=== PATIENT | male | born 1955 | race Caucasian/White ===

== ENCOUNTER 2020-05-24 13:22 | Emergency (ER) | payer OTHER, SELFPAY ==
[2020-05-24 13:26] VITALS: BP 118/92; PULSE 95; RESP 18; TEMP 36.6; O2SAT 97; BMI 25.4
[2020-05-24 14:00] VITALS: RESP 18
--- NOTE | 2020-05-24 14:38 | CT_ITS ---
EXAMINATION: CT HEAD WITHOUT CONTRAST CLINICAL INFORMATION: Right arm and leg weakness/numbness COMPARISON: MRI brain 12/05/2019 TECHNIQUE: Contiguous axial imaging was performed from the skull base to vertex without intravenous administration of contrast. This CT examination was performed using dose optimization techniques as appropriate, variously including the following: *Automated exposure control *Adjustment of mA and/or kV according to patient size (this includes techniques or standardized protocols for targeted exams where dose is matched to indication/reason for exam; i.e. extremities or head) *Use of iterative reconstruction technique DLP: 1951 mGy-cm FINDINGS: There is no acute intra-axial, extra-axial bleed, masses or midline shift. There is no acute infarction in evolution. There is encephalomalacia right frontal lobe from an old insult unchanged to previous MRI brain 06/17/2019. There is no acute infarction in evolution. There is dystrophic calcification seen in bilateral basal ganglia. There is mild bilateral periventricular hypodensity in both cerebral hemispheres there is lacunar infarction right basal ganglia. Both lateral ventricles are enlarged and so other cortical sulci. Bone windows reveal mild bilateral right frontal region. In addition there is craniotomy changes in the right frontal lobe. Rest of the calvarium is unremarkable. Bilateral paranasal sinuses and mastoid air cells are well-aerated. There is complete opacification of left maxillary sinus. Rest of the paranasal sinuses are clear. CT/CT head/brain wo con IMPRESSION: No acute intracranial process seen. Right frontal lobe encephalomalacia with a adam hole and craniotomy change along the right calvarium. There is complete opacification of left maxillary sinus from chronic sinusitis.
--- NOTE | 2020-05-24 14:38 | XR_ITS ---
EXAMINATION: XR CHEST CLINICAL INFORMATION: Weakness COMPARISON: April 25, 2017 TECHNIQUE: 2 views of the chest were obtained. FINDINGS: There are a few foci of indistinct density about the lateral aspect of the left hemidiaphragm in location where there had been previous disease on study of April 25, 2017 and this may represent scarring. No definite confluent pneumonitis is appreciated. Heart normal size. No evidence of pulmonary edema. No pneumothorax or pleural effusion. XR/XR chest 2V IMPRESSION: Probable left lung scarring with no definite confluent pneumonitis appreciated.
--- NOTE | 2020-05-24 14:38 | ECG_ITS ---
Test Reason : NUMBNESS Blood Pressure : / mmHG Vent. Rate : 054 BPM Atrial Rate : 054 BPM P-R Int : 150 ms QRS Dur : 102 ms QT Int : 466 ms P-R-T Axes : 000 002 120 degrees QTc Int : 441 ms Sinus bradycardia with Premature atrial complexes T wave abnormality, consider lateral ischemia Abnormal ECG When compared with ECG of 25-APR-2017 11:12, No significant change was found Referred By: Estella Zhang Electronically Signed By:CHEYENNE SAMUEL MD
--- NOTE | 2020-05-24 15:08 | ED_ITS ---
HPI - Neuro Symptoms/Deficit General Chief Complaint: Neuro Symptoms/Deficit Stated Complaint: rt sided numbness Time Seen by Provider: 05/24/20 14:24 Source: patient and family Mode of arrival: ambulatory Limitations: no limitations History of Present Illness HPI Narrative: 65-year-old male with past medical history of hearing and visual impairment, CVA with no residual weakness on Plavix here with complaints of right arm and leg numbness and weakness since yesterday at 09:00. The patient was seen at an outpatient urgent care and was referred to the emergency department for further evaluation. Patient denies headache, dizziness, nausea, vomiting, unsteady gait. Vision at baseline Onset (ago): day(s) (<24 hr) Time: 09:00 Timing confirmed by: spouse Location: right arm and right leg History of same: Yes (CVA 2017-presented with bilateral lower leg weakness) Severity: mild Quality: weak and numb Relieving factors: none Exacerbating factors: none On Anticoagulants: Yes (plavix and aspirin ) Associated symptoms: denies other symptoms Treatments Prior to Arrival: Aspirin (81) Related Data Home Medications Medication Instructions Recorded Confirmed aspirin 81 mg tablet,delayed 81 mg PO DAILY 05/24/20 release cholecalciferol (vitamin D3) 125 125 mcg PO DAILY 05/24/20 mcg (5,000 unit) capsule clopidogrel 75 mg tablet 75 mg PO DAILY 05/24/20 Previous Rx's Medication Instructions Recorded atorvastatin 80 mg tablet 80 mg PO DAILY #90 tab 03/07/20 folic acid 1 mg tablet 1 mg PO DAILY #90 tab 03/11/20 Allergies Allergy/AdvReac Type Severity Reaction Status Date / Time No Known Allergies Allergy Unverified 04/19/20 13:49 [No Known Allergies*] Review of Systems Review of Systems: Yes all other systems are reviewed and are negative Constitutional: Constitutional: Reports no additional constitutional complaints, Denies body ache(s), Denies chills, Denies fever(s), Denies head ache(s) and Reports weakness Eyes: Eyes: Reports no additional eye complaints and Denies change in vision ENT: Reports system reviewed and no additional complaints, except as documented, Denies dizziness, Denies headache(s), Denies nasal congestion, Denies nasal discharge and Denies neck pain Cardiovascular: Cardiovascular: Reports no additional cardiovascular complaints, Denies chest pain, Denies leg edema and Denies dyspnea Respiratory: Respiratory: Reports no additional respiratory complaints, Denies cough and Denies dyspnea Gastrointestinal: Gastrointestinal: Reports no additional gastrointestinal complaints, Denies abdominal pain, Denies diarrhea, Denies nausea and Denies vomiting Genitourinary: Genitourinary: Denies urinary incontinence Musculoskeletal: Musculoskeletal: Reports no additional musculoskeletal complaints, Denies back pain, Denies arthralgias, Denies joint swelling, Denies neck pain, Reports numbness and Denies tingling Integumentary/Breasts: Skin/Breast: Reports system reviewed and no additional complaints, except as docu and Denies rash Neurologic: Reports system reviewed and no additional complaints, except as documented, Reports Abnormal speech present, Denies dizziness, Denies he adache(s), Reports numbness, Denies tingling and Reports weakness PMFSH Past Medical History Attestation statement: The following information was validated with the patient. Source: old records reviewed and nursing notes reviewed Social History Social History Alcohol intake: unknown Smoking Status: Unknown if ever smoked Use of substances other than those prescribed or required for medical reasons: Unknown Advance Directives: No Advance Directives Information Provided: Yes Physical Exam 2 Vital Signs: Vital Signs: Last Vital Signs Temp 97.9 F 05/24/20 13:26 Pulse 95 05/24/20 13:26 Resp 18 05/24/20 16:00 BP 118/92 H 05/24/20 13:26 Pulse Ox 97 05/24/20 13:26 Body Mass Index 25.4 Const: General: cooperative, healthy appearing, comfortable and no acute distress Orientation/consciousness: patient oriented x3 Limitations: no limitations HENMT: Head: Yes normal to inspection Ears: hearing grossly normal bilaterally General nose exam: Normal external nose present Face and sinus: Yes normal facial exam Mouth: Normal oral and palatal mucosa present Throat: Yes posterior oropharynx normal Eyes: General: appearance normal, both eyes and all related structures Pupils: Equal, round and reactive pupils present Neck: Neck: Yes normal visual inspection Chest: Chest palpation & inspection: normal inspection of the chest Resp: Effort & Inspection: normal respiratory effort Auscultation: clear to auscultation bilaterally Cardio: Rate: regular rate Rhythm: regular rhythm Peripheral pulses: Peripheral pulses 2+ throughout GI: Inspection: Yes normal to inspection Palpation (GI): Soft to palpation and nontender Auscultation: normal bowel sounds Back/Spine/Pelvis: Thoracic/Lumbar Spine: thoracic and lumbar spine normal to inspection Skin: General skin exam: no rashes or lesions noted Neuro: General: patient oriented x3 Cranial nerves: Yes Equal, round and reactive pupils present, Yes Bilaterally intact EOM present, Yes Nystagmus not present, Yes Normal facial strength present, Yes Midline tongue present and Yes Normal gag reflex present Cognition (Neuro): normal cognition Speech: A bnormal speech present Gait exam (Neuro): Normal gait present Coordination: [id number] test normal, [id number] test normal and tandem gait normal Extrem: General: Yes normal to inspection Course Course Course Narrative: 65-year-old male here with right arm and leg weakness and numbness since 09:00 o'clock yesterday morning. On exam there is no appreciated leg or arm weakness. There is some reports of sensory loss on the right side. NIH score of 1. Outside of TPA window. Will check CT head, labs, UA, EKG, CXR. 1600-Pt very resistant to exam. Refusing all labs, imaging, EKG. Got Emily on the phone and patient now agreeable. 1649-CT head unremarkable. X-ray unremarkable. EKG unremarkable. Labs all negative. Continued symptoms of numbness in the right arm and leg. MRA from November 2019 shows multi vessel disease. Last seen by Dr Lo 12/05/19 which showed critical stenosis/short segment occlusion of the left subclavian artery without change from prior. 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 Call to Neurology to discuss. 1729-Spoke to Dr Lo. Reviewed MRA. Recommended obtaining CTA head/neck. If no surgical intervention warranted then f/u outpatient with neurology. Family updated. Sign out to Ghislaine ERICKSON pending above. MDM - Neuro Symptoms/Deficit MDM Narrative Medical decision making narrative: Electrolyte abnormality, CVA vs TIA vs ICH Medical Records Attestation: I reviewed the patient's medical records. Lab Data Attestation: I reviewed the patient's lab results. Result diagrams: 05/24/20 15:57 05/24/20 15:57 Labs: Lab Results 05/24/20 05/24/20 05/24/20 Range/Units 15:57 15:57 15:57 WBC 7.3 (4.8-10.8) X10*3/uL RBC 4.08 L (4.60-5.80) X10*6/uL Hgb 13.5 L (14.0-18.0) g/dl Hct 40.4 L (42-52) % MCV 99.0 H (80-98) fL MCH 33.1 H (27.0-33.0) pg MCHC 33.4 (31.0-36.0) g/dl RDW 13.9 (11.0-16.0) % Plt Count 197 (160-400) X10*3/uL MPV 9.8 (9.4-12.4) fL Immature Gran % (Auto) 0.3 (0.0-0.4) % Neut % (Auto) 67.7 (45-73) % Lymph % (Auto) 22.9 (20-40) % [place] % (Auto) 6.9 (2-11) % Eos % (Auto) 1.4 (0-4) % Baso % (Auto) 0.8 (0-2) % Lymph # (Auto) 1.7 (1.2-4.9) X10*3/uL [place] # (Auto) 0.5 (0.1-1.2) X10*3/uL Eos # (Auto) 0.1 (0.0-0.4) X10*3/uL Baso # (Auto) 0.1 (0.0-0.2) X10*3/uL Abs Immat Gran (auto) 0.02 (0.00-0.03) X10*3/uL Absolute Neuts (auto) 4.9 (2.0-8.3) X10*3/uL Absolute Nucleated RBC 0.000 (0.0-0.012) X10*3/uL Nucleated RBC % (auto) 0.0 (0.0-0.2) /100WBC PT 13.6 H (10.8-13.0) SEC INR 1.1 (0.9-1.1) Sodium 142 (135-145) mmol/L Potassium 4.1 (3.3-5.1) mmol/l Chloride 108 (96-108) mmol/L Carbon Dioxide 26 (22-29) mmol/L Anion Gap 12 (12-20) BUN 17 H (9-16) mg/dL Creatinine 1.00 (0.5-1.4) mg/dL Estim Creat Clear Calc 63.3 Estimated GFR > 60 Random Glucose 92 (60-115) mg/dL Calcium 8.2 L (8.4-10.2) mg/dL Magnesium 2.2 (1.6-2.6) mg/dL Total Bilirubin 0.8 (0.0-1.0) mg/dL Direct Bilirubin 0.4 (0.0-0.5) mg/dL AST 16 (5-37) U/L ALT 13 (0-40) U/L Alkaline Phosphatase 59 (39-117) U/L Troponin I High Sens (<3.5-35.0) ng/L Total Protein 6.3 L (6.5-8.0) g/dL Albumin 4.2 (3.5-5.0) g/dL Urine Color Urine Appearance Urine pH (5.0-8.0) Ur Specific [place] (1.005-1.025) Urine Protein (NEG-TRACE) MG/DL Urine Glucose (UA) (NEG) MG/DL Urine Ketones (NEG) MG/DL Urine Blood (NEG) Urine Nitrite (NEG) Ur Leukocyte Esterase (NEG) 05/24/20 05/24/20 Range/Units 15:57 16:05 WBC (4.8-10.8) X10*3/uL RBC (4.60-5.80) X10*6/uL Hgb (14.0-18.0) g/dl Hct (42-52) % MCV (80-98) fL MCH (27.0-33.0) pg MCHC (31.0-36.0) g/dl RDW (11.0-16.0) % Plt Count (160-400) X10*3/uL MPV (9.4-12.4) fL Immature Gran % (Auto) (0.0-0.4) % Neut % (Auto) (45-73) % Lymph % (Auto) (20-40) % [place] % (Auto) (2-11) % Eos % (Auto) (0-4) % Baso % (Auto) (0-2) % Lymph # (Auto) (1.2-4.9) X10*3/uL [place] # (Auto) (0.1-1.2) X10*3/uL Eos # (Auto) (0.0-0.4) X10*3/uL Baso # (Auto) (0.0-0.2) X10*3/uL Abs Immat Gran (auto) (0.00-0.03) X10*3/uL Absolute Neuts (auto) (2.0-8.3) X10*3/uL Absolute Nucleated RBC (0.0-0.012) X10*3/uL Nucleated RBC % (auto) (0.0-0.2) /100WBC PT (10.8-13.0) SEC INR (0.9-1.1) Sodium (135-145) mmol/L Potassium (3.3-5.1) mmol/l Chloride (96-108) mmol/L Carbon Dioxide (22-29) mmol/L Anion Gap (12-20) BUN (9-16) mg/dL Creatinine (0.5-1.4) mg/dL Estim Creat Clear Calc Estimated GFR Random Glucose (60-115) mg/dL Calcium (8.4-10.2) mg/dL Magnesium (1.6-2.6) mg/dL Total Bilirubin (0.0-1.0) mg/dL Direct Bilirubin (0.0-0.5) mg/dL AST (5-37) U/L ALT (0-40) U/L Alkaline Phosphatase (39-117) U/L Troponin I High Sens 15.5 (<3.5-35.0) ng/L Total Protein (6.5-8.0) g/dL Albumin (3.5-5.0) g/dL Urine Color YELLOW Urine Appearance CLEAR Urine pH 6.0 (5.0-8.0) Ur Specific [place] >= 1.030 H (1.005-1.025) Urine Protein NEG (NEG-TRACE) MG/DL Urine Glucose (UA) NEG (NEG) MG/DL Urine Ketones NEG (NEG) MG/DL Urine Blood NEG (NEG) Urine Nitrite NEG (NEG) Ur Leukocyte Esterase NEG (NEG) Imaging Data CT scan - head: Attestation: I personally reviewed and interpreted this imaging study as follows: Radiologist's impression: EXAMINATION: CT HEAD WITHOUT CONTRAST CLINICAL INFORMATION: Right arm and leg weakness/numbness COMPARISON: MRI brain 12/05/2019 TECHNIQUE: Contiguous axial imaging was performed from the skull base to vertex without intravenous administration of contrast. This CT examination was performed using dose optimization techniques as appropriate, variously including the following: *Automated exposure control *Adjustment of mA and/or kV according to patient size (this includes techniques or standardized protocols for targeted exams where dose is matched to indication/reason for exam; i.e. extremities or head) *Use of iterative reconstruction technique DLP: 1951 mGy-cm FINDINGS: There is no acute intra-axial, extra-axial bleed, masses or midline shift. There is no acute infarction in evolution. There is encephalomalacia right frontal lobe from an old insult unchanged to previous MRI brain 06/17/2019. There is no acute infarction in evolution. There is dystrophic calcification seen in bilateral basal ganglia. There is mild bilateral periventricular hypodensity in both cerebral hemispheres there is lacunar infarction right basal ganglia. Both lateral ventricles are enlarged and so other cortical sulci. Bone windows reveal mild bilateral right frontal region. In addition there is craniotomy changes in the right frontal lobe. Rest of the calvarium is unremarkable. Bilateral paranasal sinuses and mastoid air cells are well-aerated. There is complete opacification of left maxillary sinus. Rest of the paranasal sinuses are clear. CT/CT head/brain wo con IMPRESSION: No acute intracranial process seen. Right frontal lobe encephalomalacia with a adam hole and craniotomy change along the right calvarium. There is complete opacification of left maxillary sinus from chronic sinusitis. Chest x-ray: Attestation: I personally reviewed and interpreted this imaging study as follows: Radiologist's impression: EXAMINATION: XR CHEST CLINICAL INFORMATION: Weakness COMPARISON: April 25, 2017 TECHNIQUE: 2 views of the chest were obtained. FINDINGS: There are a few foci of indistinct density about the lateral aspect of the left hemidiaphragm in location where there had been previous disease on study of April 25, 2017 and this may represent scarring. No definite confluent pneumonitis is appreciated. Heart normal size. No evidence of pulmonary edema. No pneumothorax or pleural effusion. XR/XR chest 2V IMPRESSION: Probable left lung scarring with no definite confluent pneumonitis appreciated. ECG Data Attestation: I personally reviewed and interpreted this ECG as follows: ECG interpretation date: 05/24/20 ECG interpretation time: 15:47 Interpretation: Bradycardia with occasional PACs, normal [place], normal QRS. Rate is 54, T-wave inversions in leads V4, V5 and V6 which appear unchanged with previous EKG 2017 NIH Stroke Scale Internal: Initial- Upon Arrival Level of Consciousness: Alert Level of Consciousness Questions: Answers both questions correctly Level of Consciousness Commands: Performs both tasks correctly Best Gaze: Normal Visual: No visual loss (no changes from baseline-legally blind ) Facial Palsy: Normal Motor Arm (Right): No drift Motor Arm (Left): No drift Motor Leg (Right): No drift Motor Leg (Left): No drift Limb Ataxia: Absent Sensory: Mild to moderate sensory loss Best Language: No aphasia Dysarthia: Normal Extinction and Inattention: No abnormality Score: 1 Discharge Plan Discharge Prescriptions: No Action atorvastatin 80 mg tablet 80 mg PO DAILY Qty: 90 RF: 1 folic acid 1 mg tablet 1 mg PO DAILY Qty: 90 RF: 0 clopidogrel 75 mg tablet 75 mg PO DAILY RF: 0 aspirin [Adult Aspirin Regimen] 81 mg tablet,delayed release (DR/EC) 81 mg PO DAILY RF: 0 cholecalciferol (vitamin D3) 125 mcg (5,000 unit) capsule 125 mcg PO DAILY RF: 0
[2020-05-24 16:00] VITALS: RESP 18
[2020-05-24 16:12] LABS: MANUAL DIFF FLAG NO
[2020-05-24 16:15] LABS: Glucose Urine UA NEG (NEG); Leukocyte Esterase Urine NEG (NEG); Nitrite Urine NEG (NEG); Specific Gravity - Urine >= 1.030 (1.005-1.025); Urine Blood NEG (NEG); Urine Ketones NEG (NEG); Urine Protein NEG (NEG-TRACE)
[2020-05-24 16:15] LABS: Basophils Absolute Auto 0.1 X10*3/uL (0.0-0.2); Basophils Percent Auto 0.8 % (0-2); Eosinophils Absolute Auto 0.1 X10*3/uL (0.0-0.4); Eosinophils Percent Auto 1.4 % (0-4); Hematocrit 40.4 % (42-52); Hemoglobin 13.5 g/dl (14.0-18.0); Imm Gran Abs Auto 0.02 X10*3/uL (0.00-0.03); Imm Gran Pct Auto 0.3 % (0.0-0.4); Lymphocytes Absolute Auto 1.7 X10*3/uL (1.2-4.9); Lymphocytes Percent Auto 22.9 % (20-40); Mean Corpuscular HGB Conc 33.4 g/dl (31.0-36.0); Mean Corpuscular Hemoglobin 33.1 pg (27.0-33.0); Mean Platelet Volume 9.8 fL (9.4-12.4); Monocytes Absolute Auto 0.5 X10*3/uL (0.1-1.2); Monocytes Percent Auto 6.9 % (2-11); Neutrophils Absolute Auto 4.9 X10*3/uL (2.0-8.3); Neutrophils Percent Auto 67.7 % (45-73); Platelet Count 197 X10*3/uL (160-400); Red Blood Count 4.08 X10*6/uL (4.60-5.80); Red Cell Distribution Width 13.9 % (11.0-16.0); White Blood Count 7.3 X10*3/uL (4.8-10.8)
[2020-05-24 16:19] LABS: Appearance Urine CLEAR; Color Urine YELLOW
[2020-05-24 16:26] LABS: INTERNATIONAL NORM RATIO 1.1 (0.9-1.1); Prothrombin Time 13.6 SEC (10.8-13.0)
[2020-05-24 16:39] LABS: Alanine Aminotransferase 13 U/L (0-40); Albumin Level 4.2 g/dL (3.5-5.0); Alkaline Phosphatase 59 U/L (39-117); Anion Gap 12 (12-20); Aspartate Amino Transferase 16 U/L (5-37); Bilirubin Direct 0.4 mg/dL (0.0-0.5); Bilirubin Total 0.8 mg/dL (0.0-1.0); Blood Urea Nitrogen 17 mg/dL (9-16); Calcium 8.2 mg/dL (8.4-10.2); Carbon Dioxide 26 mmol/L (22-29); Chloride 108 mmol/L (96-108); Creatinine Clr Calc Pharmacy 63.3; Estimated Glomerular Filt Rate > 60; Glucose Random 92 mg/dL (60-115); Magnesium 2.2 mg/dL (1.6-2.6); Potassium 4.1 mmol/l (3.3-5.1); Sodium 142 mmol/L (135-145); Total Protein 6.3 g/dL (6.5-8.0)
[2020-05-24 16:43] LABS: Troponin-I High Sensitivity 15.5 ng/L (<3.5-35.0)
--- NOTE | 2020-05-24 17:24 | CT_ITS ---
EXAMINATION: CT ANGIOGRAM OF THE HEAD CT ANGIOGRAM OF THE NECK CLINICAL INFORMATION: Right arm numbness and right leg weakness. COMPARISON: Concurrent CT scan of the head earlier 05/24/2020. MRA of the head and neck 12/05/2019 and MRI scan of the brain 06/17/2019 TECHNIQUE: Test bolus series followed by intravenous administration 70 mL of Omnipaque 350. Helical imaging was performed in the axial plane from the mediastinum to the skull vertex. The degree of stenosis is based off NASCET criteria. The data was processed at the automation technologist workstation for generation of MIP images. Three-dimensional volume rendered reformatted images were also generated at an offline 3-D workstation. This CT examination was performed using dose optimization techniques as appropriate, variously including the following: *Automated exposure control *Adjustment of mA and/or kV according to patient size (this includes techniques or standardized protocols for targeted exams where dose is matched to indication/reason for exam; i.e. extremities or head) *Use of iterative reconstruction technique DLP: 1514. mGy-cm. FINDINGS: CT Head: The study redemonstrates the sequelae from the right temporoparietal craniotomy with underlying gliosis and encephalomalacia. There is a lacunar infarct in the right basal ganglia. There is overall prominence of the ventricles and sulci consistent with diffuse volume loss. There is slight ex-vacuo dilatation of the body of the right lateral ventricle. The study redemonstrates coarse mineralization changes in the bilateral basal ganglia. There are no extra-axial fluid collections. There is no abnormal enhancement. There is no evidence of acute hemorrhage. There are multiple scattered areas of low attenuation in the periventricular and subcortical white matter consistent with chronic microvascular ischemic disease. Multiple lacunar infarcts are redemonstrated in the tristan and in the cerebellar hemispheres. There are atheromatous calcifications of the cavernous internal carotid arteries bilaterally. The mastoid air cells are well-aerated. There is complete opacification of the left maxillary sinus. CTA Neck: There is a common origin of the left common carotid and brachiocephalic arteries which is a normal variant. There are atheromatous calcifications of the aortic arch. There is marked narrowing of the proximal left subclavian artery just distal to its origin; the vessel opacifies distal to this. There are atheromatous calcifications at the origin of the right common carotid artery. Both common carotid arteries are patent. There are atheromatous calcifications bilaterally, without significant stenosis. The cervical internal carotid arteries appear normal bilaterally. The origins of both vertebral arteries are well-demonstrated. Both vertebral arteries are patent throughout their cervical course extending intradurally, and are codominant. Nonvascular: The visualized lung malone are well-aerated. There are small lymph nodes at multiple levels in the neck bilaterally which appear morphologically normal. The thyroid gland appears normal. There are mild spondylitic changes in the cervical spine. The patient is edentulous in the maxilla. There is a residual partially ruptured right mandibular molar tooth. CTA Head: There are atheromatous calcifications of the cavernous internal carotid arteries bilaterally. The vessels demonstrate flow. There are calcifications of the right supraclinoid internal carotid artery. The carotid termini appear normal. There is slight irregularity of the distal M1/proximal M2 segments of the right middle cerebral artery. The left middle cerebral artery appears to have uniform caliber. There is decreased arborization of the posterior right middle cerebral artery territory. The A1 segment of the left anterior cerebral artery is markedly thinner compared to the right. The anterior communicating artery appears normal. There is cutoff of the proximal A2 segment of the right anterior cerebral artery. The A2 segment of the left anterior cerebral artery is patent. The intradural vertebral arteries are codominant. There are moderate atheromatous calcifications of the proximal intradural left vertebral artery, and distal to this the vessel has slightly irregular caliber. The right vertebral artery has uniform caliber. More distally, both vertebral arteries are patent. The basilar artery is patent. The right posterior cerebral artery has thinner caliber compared to the left, and there are irregularities in the proximal P2 segment of the left posterior cerebral artery. There is also irregularity of the proximal left superior cerebellar artery. The venous sinuses opacify normally. CT/CT angio head neck IMPRESSION: CT head and neck: 1. The study redemonstrates extensive gliosis and encephalomalacia in the distribution of the right middle cerebral artery. 2. There are no acute bleeds or territorial infarcts. No masses are demonstrated and there is no abnormal enhancement. 3. There is diffuse volume loss and there are chronic microvascular ischemic changes and lacunar infarcts. CTA head and neck: 1. The study redemonstrates marked narrowing just proximal to the origin of the left subclavian artery, demonstrated on prior imaging. 2. The carotid arteries and vertebral arteries in the neck show no evidence of significant stenosis or occlusion. 3. Intracranially, the A2 segment of the right anterior cerebral artery is cutoff, similar compared to prior imaging. 4. The right posterior cerebral artery has thinner caliber compared to the left, also demonstrated on prior imaging. The study also redemonstrates irregularity of the P2 segment of the left posterior cerebral artery. 5. No aneurysms are demonstrated.
[2020-05-24 17:40] VITALS: BP 125/82; PULSE 54; RESP 16; TEMP 37.2; O2SAT 97
[2020-05-24 18:00] VITALS: RESP 18
[2020-05-24] MEDS: iohexoL 350 MG/ML 100 ML INFUS..BTL IV (18:47)
--- NOTE | 2020-05-24 19:31 | PC.NURSE ---
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 I explained that patient had a cat scan and we are awaiting the results of scan and blood work. This proposal lead writer will call patient's and let her know as soon as patient is ready for discharge.
[2020-05-24 20:41] VITALS: BP 130/81; PULSE 66; RESP 18; TEMP 36.8; O2SAT 97
== END 2020-05-24 21:36 | disposition home or self-care (01) ==
PROVIDERS: Nurse Practitioner Family; Emergency Provider Emergency Medicine Emergency Medical Services; PCP Internal Medicine
DX: R20.0 Anesthesia of skin (principal); R53.1 Weakness; R29.701 NIHSS score 1; Z86.73 Personal history of transient ischemic attack (TIA), and cerebral infarction without residual deficits; Z79.899 Other long term (current) drug therapy; Z79.82 Long term (current) use of aspirin
CPT/HCPCS: 36415; 70450; 70496; 70498; 71046; 80048; 80076; 81003; 83735; 84484; 85025; 85610; 93005; 99284; Q9967

== ENCOUNTER 2020-06-08 13:35 | Outpatient (REF) | payer OTHER, SELFPAY ==
--- NOTE | 2020-06-08 13:48 | MR_ITS ---
EXAMINATION: MRI OF THE BRAIN WITHOUT CONTRAST CLINICAL INFORMATION: Stroke. COMPARISON: CT scan and CTA of the head 05/24/2020. MRI scan of the brain 06/17/2019. TECHNIQUE: MRI of the brain was obtained using routine sequences without contrast. FINDINGS: No diffusion abnormalities are identified to suggest an acute or subacute infarct. There is a large area of gliosis and encephalomalacia in the right parieto-occipital temporal regions. The ventricles and sulci commensurately prominent consistent with moderate diffuse volume loss. There are extensive areas of increased T2 and FLAIR signal in the periventricular and subcortical white matter bilaterally and in the tristan. Chronic encephalomalacic changes likely from infarct are demonstrated in the posterior right superior frontal gyrus, in the bilateral temporal lobes and in the right basal ganglia. There is a chronic infarct in the central tristan just to the left of midline. There are sequelae of a craniotomy in the right frontal region. All these findings appear stable compared to prior imaging. No extra-axial fluid collections are seen. No mass effect or midline shift is seen. The cerebellum appears normal. There is susceptibility artifact from around the craniotomy in the right frontal bone. There is relatively extensive mineralization of the bilateral basal ganglia. A focus of low gradient signal is also demonstrated anterior to the trigone of the right lateral ventricle. These are unchanged. There is no evidence of acute hemorrhage. The craniovertebral junction, marrow signal, and midline structures are normal. The major intracranial flow-voids at the level of the pauma of [place] are preserved. The dural venous sinus flow-voids are maintained. The mastoid air cells are well-aerated. There is extensive opacification of the left maxillary sinus, which was demonstrated on prior imaging. MR/MR head/brain wo con IMPRESSION: 1. There are no acute bleeds or territorial infarcts. No masses are demonstrated. 2. There is extensive gliosis and encephalomalacia in the right temporoparietal occipital regions, consistent with sequelae of a right middle cerebral artery territory chronic infarct. In addition, there are sequelae of chronic infarcts in the right frontal lobe, in the right basal ganglia and in the tristan. Gliotic changes are noted in the anterior temporal lobes bilaterally. These findings appear stable compared to prior imaging. There is prominence of the ventricles with commensurate sulcal prominence consistent with moderate diffuse volume loss.
== END 2020-06-08 13:36 | disposition home or self-care (01) ==
LOC: HO.MRI 13:35
PROVIDERS: Visit Provider Psychiatry & Neurology Neurology
DX: I63.9 Cerebral infarction, unspecified (principal)
CPT/HCPCS: 70551

== ENCOUNTER → 2020-06-18 12:37 | Outpatient (BNVA) | payer OTHER, SELFPAY | PROVIDERS: PCP Internal Medicine; Visit Provider Internal Medicine | DX: M81.0 Age-related osteoporosis without current pathological fracture (principal); E55.9 Vitamin D deficiency, unspecified | CPT/HCPCS: 99212 ==

== ENCOUNTER 2020-07-25 01:05 | Emergency (ER) | payer OTHER, SELFPAY ==
[2020-07-25] VITALS (7 sets, daily range): BP systolic 126–145; BP diastolic 87–101; PULSE 54–67; RESP 14–19; TEMP 37; O2SAT 97–98; BMI 23.7
--- NOTE | ~2020-07-25 | CT_ITS ---
EXAMINATION: CT HEAD WITHOUT CONTRAST CLINICAL INFORMATION: Confusion. COMPARISON: MRI head 06/08/2020 TECHNIQUE: Contiguous axial imaging was performed from the skull base to vertex without intravenous administration of contrast. This CT examination was performed using dose optimization techniques as appropriate, variously including the following: *Automated exposure control *Adjustment of mA and/or kV according to patient size (this includes techniques or standardized protocols for targeted exams where dose is matched to indication/reason for exam; i.e. extremities or head) *Use of iterative reconstruction technique DLP: 750 mGy-cm FINDINGS: There is no evidence of acute intracranial hemorrhage or territorial infarction. There is a large right frontoparietal encephalomalacia from old insult. There is no acute infarct interval resolution seen. There is diffuse periarticular hypodensity seen in both cerebral hemispheres slightly greater on the right side from chronic small vessel microangiopathy. No abnormal mass effect or midline shift is seen. Timmons to white matter differentiation is well preserved. No extra-axial fluid collections are identified. Symmetrical but enlarged. There is no edema There is no abnormal attenuation within the brain parenchyma. Bone windows reveals mild cortical thinning or defect along the right temporal and right frontal calvarium. This could be from previous intervention. No calvarial abnormality in this time. There is complete opacification of left maxillary sinus. Rest of the sinuses and mastoid air cells are well-aerated. There is a focal calcification along the right superior optic nerve sheath on axial image 27/3. Otherwise the optic foramina and the optic nerves are symmetrical and normal. CT/CT head/brain wo con IMPRESSION: No acute intracranial process seen. Right frontoparietal encephalomalacia from old insult. Mild cerebral atrophy with chronic small vessel microangiopathy in both cerebral hemispheres. Focal cortical thinning or small bowel rolls along the right frontal and parietal temporal bones. Correlate clinically. Focal calcification along the right mid optic nerve, likely meningeal calcification. Question echogenic versus meningeal.
--- NOTE | ~2020-07-25 | XR_ITS ---
EXAMINATION: XR CHEST CLINICAL INFORMATION: Cough COMPARISON: 05/24/2020 TECHNIQUE: Frontal view of the chest was obtained. FINDINGS: Cardiac leads overlie the chest. Cardiac and mediastinal contours are within normal limits in size. Pulmonary vasculature is normal. Lungs are clear. No consolidation, pneumothorax, or pleural effusion. Mild degenerative spondylosis in the thoracic spine. No acute osseous findings. XR/XR chest 1V IMPRESSION: No acute pulmonary findings.
--- NOTE | 2020-07-25 01:22 | ECG_ITS ---
Test Reason : AMS Blood Pressure : / mmHG Vent. Rate : 057 BPM Atrial Rate : 057 BPM P-R Int : 150 ms QRS Dur : 100 ms QT Int : 448 ms P-R-T Axes : 021 000 123 degrees QTc Int : 436 ms Sinus bradycardia with Premature atrial complexes Minimal voltage criteria for LVH, may be normal variant T wave abnormality, consider lateral ischemia Abnormal ECG When compared with ECG of 24-MAY-2020 15:47, No significant change was found Referred By: Emily Gandara Electronically Signed By:CHEYENNE SAMUEL MD
--- NOTE | 2020-07-25 01:30 | ED_ITS ---
HPI - General Adult General Chief complaint: Altered Mental Status Stated complaint: altered mental Time Seen by Provider: 07/25/20 01:21 Source: patient and EMS Mode of arrival: EMS History of Present Illness HPI narrative: This is a 65-year-old male who is reported to ?be confused since 2017? by his since his stroke at that time. Apparently today the patient called 911 and stated that he was expecting a bread shipment and needed help removing it. When patient is asked what brought him in this evening he has replied the ambulance and that they ?talked him into coming to the hospital?. He otherwise denies any difficulty breathing, chest pain, fevers, chills, abdominal pain. The states she is ?unable to handle him at home?. Related Data Home Medications Medication Instructions Recorded Confirmed aspirin 81 mg tablet,delayed 81 mg PO DAILY 05/24/20 06/26/20 release Previous Rx's Medication Instructions Recorded atorvastatin 80 mg tablet 80 mg PO DAILY #90 tab 03/07/20 cholecalciferol (vitamin D3) 125 125 mcg PO DAILY #90 cap 05/29/20 mcg (5,000 unit) capsule folic acid 1 mg tablet 1 mg PO DAILY #90 tab 06/07/20 trazodone 50 mg tablet 50 mg PO DAILY #90 tab 06/12/20 clopidogrel 75 mg tablet 75 mg PO DAILY #90 tab 06/27/20 Allergies Allergy/AdvReac Type Severity Reaction Status Date / Time No Known Allergies Allergy Verified 06/18/20 12:51 [No Known Allergies*] Review of Systems Review of Systems: Pertinent positives and negatives as stated in HPI 10 point review of systems is otherwise negative. [facility] Past Medical History Source: nursing notes reviewed Medical History Compression fracture of T8 vertebra CVA (cerebral vascular accident) Hyperlipidemia Impaired hearing Insomnia Legally blind Lower back pain Osteoporosis Vitamin D deficiency Surgical History No pertinent past surgical history Family History Family History Father Cancer Mother No problems noted. Paternal Grandmother Diabetes mellitus Brother No problems noted. Brother No problems noted. Sister No problems noted. Social History Social History Alcohol intake: unknown Smoking Status: Unknown if ever smoked Tobacco Type: Cigarette Packs Per Day: 1 Use of substances other than those prescribed or required for medical reasons: Unknown Advance Directives: No Physical Exam Vital Signs: Vital Signs: Last Vital Signs Temp 98.6 F 07/25/20 02:00 Pulse 55 07/25/20 06:00 Resp 18 07/25/20 06:00 BP 126/93 H 07/25/20 06:00 Pulse Ox 97 07/25/20 06:00 Body Mass Index 23.7 VITAL SIGNS: Reviewed. GENERAL: Well developed, well nourished, in no acute distress. HEAD: Normocephalic/atraumatic EYES: PERRLA, EOMI intact without pain, no nystagmus EARS: Ext canals without abnormality, TMs non-bulging and non-erythematous NOSE: Nares patent bilateral OROPHARYNX: no oral lesions noted, posterior pharynx clear, dry mucous NECK: Supple, no adenopathy LUNGS: Normal breath sounds. No adventitious sounds or accessory muscle use. Sp O2<98> CARDIOVASCULAR: Regular rate and rhythm without noted murmurs ABDOMEN: Soft, non-tender, non-distended with bowel sounds. NEUROLOGIC: Alert and oriented x 4. Strength and sensation to light touch were grossly intact x 4, no pronator drift, cerebellar intact. NIHSS-0 Course Course Course Narrative: This is a 65-year-old male with history and clinical presentation suggestive of delirium delirium, dementia, and low clinical suspicion for stroke/intracranial pathology. Review of all investigations negative for acute finding. Based on 's statement will have patient further evaluated by case management in discussion with the for possible assistance at home versus placement. Signed out to Dr Roberts. Reevaluation(s) Reevaluation #1: This physician observation started. Patient placed in physician observation because he needs more time for evaluation by case management for possible in-home services versus placement. At the time observation was started the patient's vitals were stable, patient is alert and oriented with out neurological focal findings, CV RRR, lungs clear. Medical Decision Making Lab Data Result diagrams: 07/25/20 01:47 07/25/20 01:47 Labs: Lab Results 07/25/20 07/25/20 07/25/20 Range/Units 01:47 01:47 01:47 WBC 7.5 (4.8-10.8) X10*3/uL RBC 4.10 L (4.60-5.80) X10*6/uL Hgb 13.2 L (14.0-18.0) g/dl Hct 40.0 L (42-52) % MCV 97.6 (80-98) fL MCH 32.2 (27.0-33.0) pg MCHC 33.0 (31.0-36.0) g/dl RDW 13.3 (11.0-16.0) % Plt Count 231 (160-400) X10*3/uL MPV 9.9 (9.4-12.4) fL Immature Gran % (Auto) 0.3 (0.0-0.4) % Neut % (Auto) 61.3 (45-73) % Lymph % (Auto) 27.5 (20-40) % [place] % (Auto) 7.9 (2-11) % Eos % (Auto) 2.1 (0-4) % Baso % (Auto) 0.9 (0-2) % Lymph # (Auto) 2.1 (1.2-4.9) X10*3/uL [place] # (Auto) 0.6 (0.1-1.2) X10*3/uL Eos # (Auto) 0.2 (0.0-0.4) X10*3/uL Baso # (Auto) 0.1 (0.0-0.2) X10*3/uL Abs Immat Gran (auto) 0.02 (0.00-0.03) X10*3/uL Absolute Neuts (auto) 4.6 (2.0-8.3) X10*3/uL Absolute Nucleated RBC 0.000 (0.0-0.012) X10*3/uL Nucleated RBC % (auto) 0.0 (0.0-0.2) /100WBC PT 12.2 (10.8-13.0) SEC INR 1.0 (0.9-1.1) Sodium 141 (135-145) mmol/L Potassium 4.7 (3.3-5.1) mmol/L Chloride 108 (96-108) mmol/L Carbon Dioxide 22 (22-29) mmol/L Anion Gap 16 (12-20) BUN 15 (9-16) mg/dL Creatinine 1.12 (0.5-1.4) mg/dL Estim Creat Clear Calc 56.5 Estimated GFR > 60 Random Glucose 118 H (60-115) mg/dL Calcium 8.6 (8.4-10.2) mg/dL Magnesium 2.4 (1.6-2.6) mg/dL Total Bilirubin 0.7 (0.0-1.0) mg/dL AST 25 D (5-37) U/L ALT 12 (0-40) U/L Alkaline Phosphatase 68 (39-117) U/L Total Protein 6.7 (6.5-8.0) g/dL Albumin 4.0 (3.5-5.0) g/dL Urine Color Urine Appearance Urine pH (5.0-8.0) Ur Specific [place] (1.005-1.025) Urine Protein (NEG-TRACE) MG/DL Urine Glucose (UA) (NEG) MG/DL Urine Ketones (NEG) MG/DL Urine Blood (NEG) Urine Nitrite (NEG) Ur Leukocyte Esterase (NEG) COVID-19 (TAMIKA) (Negative) COVID-19 Clin Com 07/25/20 07/25/20 Range/Units 05:18 05:48 WBC (4.8-10.8) X10*3/uL RBC (4.60-5.80) X10*6/uL Hgb (14.0-18.0) g/dl Hct (42-52) % MCV (80-98) fL MCH (27.0-33.0) pg MCHC (31.0-36.0) g/dl RDW (11.0-16.0) % Plt Count (160-400) X10*3/uL MPV (9.4-12.4) fL Immature Gran % (Auto) (0.0-0.4) % Neut % (Auto) (45-73) % Lymph % (Auto) (20-40) % [place] % (Auto) (2-11) % Eos % (Auto) (0-4) % Baso % (Auto) (0-2) % Lymph # (Auto) (1.2-4.9) X10*3/uL [place] # (Auto) (0.1-1.2) X10*3/uL Eos # (Auto) (0.0-0.4) X10*3/uL Baso # (Auto) (0.0-0.2) X10*3/uL Abs Immat Gran (auto) (0.00-0.03) X10*3/uL Absolute Neuts (auto) (2.0-8.3) X10*3/uL Absolute Nucleated RBC (0.0-0.012) X10*3/uL Nucleated RBC % (auto) (0.0-0.2) /100WBC PT (10.8-13.0) SEC INR (0.9-1.1) Sodium (135-145) mmol/L Potassium (3.3-5.1) mmol/L Chloride (96-108) mmol/L Carbon Dioxide (22-29) mmol/L Anion Gap (12-20) BUN (9-16) mg/dL Creatinine (0.5-1.4) mg/dL Estim Creat Clear Calc Estimated GFR Random Glucose (60-115) mg/dL Calcium (8.4-10.2) mg/dL Magnesium (1.6-2.6) mg/dL Total Bilirubin (0.0-1.0) mg/dL AST (5-37) U/L ALT (0-40) U/L Alkaline Phosphatase (39-117) U/L Total Protein (6.5-8.0) g/dL Albumin (3.5-5.0) g/dL Urine Color YELLOW Urine Appearance CLEAR Urine pH 6.5 (5.0-8.0) Ur Specific [place] 1.020 (1.005-1.025) Urine Protein NEG (NEG-TRACE) MG/DL Urine Glucose (UA) NEG (NEG) MG/DL Urine Ketones NEG (NEG) MG/DL Urine Blood NEG (NEG) Urine Nitrite NEG (NEG) Ur Leukocyte Esterase NEG (NEG) COVID-19 (TAMIKA) Negative (Negative) COVID-19 Clin Com See Note ECG Data Attestation: I personally reviewed and interpreted this ECG as follows: Prior ECG tracings: available for review (05/24/2020 no acute changes on comparison) Interpretation: Sinus bradycardia with PACs, HR -57, no evidence of acute ischemia, AL/QRS/QTC are within normal limits. Discharge Plan Discharge Prescriptions: No Action atorvastatin 80 mg tablet 80 mg PO DAILY Qty: 90 RF: 1 cholecalciferol (vitamin D3) 125 mcg (5,000 unit) capsule 125 mcg PO DAILY Qty: 90 RF: 3 folic acid 1 mg tablet 1 mg PO DAILY Qty: 90 RF: 3 trazodone 50 mg tablet 50 mg PO DAILY Qty: 90 RF: 3 clopidogrel 75 mg tablet 75 mg PO DAILY Qty: 90 RF: 3 aspirin [Adult Aspirin Regimen] 81 mg tablet,delayed release (DR/EC) 81 mg PO DAILY RF: 0
[2020-07-25 02:31] LABS: Basophils Absolute Auto 0.1 X10*3/uL (0.0-0.2); Basophils Percent Auto 0.9 % (0-2); Eosinophils Absolute Auto 0.2 X10*3/uL (0.0-0.4); Eosinophils Percent Auto 2.1 % (0-4); Hemoglobin 13.2 g/dl (14.0-18.0); Imm Gran Abs Auto 0.02 X10*3/uL (0.00-0.03); Imm Gran Pct Auto 0.3 % (0.0-0.4); Lymphocytes Absolute Auto 2.1 X10*3/uL (1.2-4.9); Lymphocytes Percent Auto 27.5 % (20-40); MANUAL DIFF FLAG NO; Mean Corpuscular Hemoglobin 32.2 pg (27.0-33.0); Mean Corpuscular Volume 97.6 fL (80-98); Mean Platelet Volume 9.9 fL (9.4-12.4); Monocytes Absolute Auto 0.6 X10*3/uL (0.1-1.2); Monocytes Percent Auto 7.9 % (2-11); Neutrophils Absolute Auto 4.6 X10*3/uL (2.0-8.3); Neutrophils Percent Auto 61.3 % (45-73); Platelet Count 231 X10*3/uL (160-400); Red Cell Distribution Width 13.3 % (11.0-16.0); White Blood Count 7.5 X10*3/uL (4.8-10.8)
[2020-07-25 02:37] LABS: Prothrombin Time 12.2 SEC (10.8-13.0)
[2020-07-25 03:09] LABS: Alanine Aminotransferase 12 U/L (0-40); Alkaline Phosphatase 68 U/L (39-117); Anion Gap 16 (12-20); Aspartate Amino Transferase 25 U/L (5-37); Bilirubin Total 0.7 mg/dL (0.0-1.0); Blood Urea Nitrogen 15 mg/dL (9-16); Calcium 8.6 mg/dL (8.4-10.2); Carbon Dioxide 22 mmol/L (22-29); Chloride 108 mmol/L (96-108); Creatinine Clr Calc Pharmacy 56.5; Estimated Glomerular Filt Rate > 60; Glucose Random 118 mg/dL (60-115); Magnesium 2.4 mg/dL (1.6-2.6); Potassium 4.7 mmol/L (3.3-5.1); Sodium 141 mmol/L (135-145); Total Protein 6.7 g/dL (6.5-8.0)
[2020-07-25] MEDS: 0.9 % Sodium Chloride 1,000 ML 999 ML IV ×2 (04:33)
[2020-07-25 05:25] LABS: Glucose Urine UA NEG (NEG); Leukocyte Esterase Urine NEG (NEG); Nitrite Urine NEG (NEG); PH 6.5 (5.0-8.0); Urine Blood NEG (NEG); Urine Ketones NEG (NEG); Urine Protein NEG (NEG-TRACE)
[2020-07-25 05:26] LABS: Appearance Urine CLEAR; Color Urine YELLOW; UACC Culture Trigger NO
[2020-07-25 06:14] LABS: COVID-19 Test Negative (Negative)
--- NOTE | 2020-07-25 11:00 | MHC.CM.ED ---
Received case management consult overnight. Patient came to the ER due to confusion. However, it is documented by ER provider that patient is alert and oriented x4. T/W attempted to reach patient's , Emily via telephone. Left voicemail requesting return telephone call. Continue to monitor for d/c needs.
--- NOTE | 2020-07-25 14:14 | MHC.CM.ED ---
Received return telephone call from patient's , Emily. Patient and Emily have been for 30 years. They live together. Patient is supposed to wear hearing aides but doesn't and has not been participating in his ADLs. Per Emily, Amari doesn't listen to anything I say and I can't care for him. Referrals for facilities contracted with patient's insurance broadcasted in [employer]. At this time, [facility] is only facility that is willing to offer a bed. Emily aware. She will contact patient's brother/HCP Ed. Patient was seen in neurology office in May. Found to be alert and oriented x4. Emily stated patient was confused and called 911 to order a truck. Arlene CHAVEZ aware. Head CT ordered and completed. No acute changes found. Patient is still alert and oriented x4. He is very [place] and does not have his hearing aides with him. He is also legally blind. Received telephone call from patient's brother/HCP, Ed. He can be reached via telephone at [phone]. Ed verifies patient is legally blind and hard of hearing. He is also stubborn when it comes to wearing his hearing aides. Ed does not feel patient is appropriate for snf care placement. Ed is requesting more services in the home. Ed also states Emily will not drive patient to his doctors appointments and he has to access public transportation. Patient is active with [facility]. T/W will notify [place], transitions of care for [facility], to ask patient care technician instructor to call patient's brother/HCP, Ed to arrange more services, including nursing, HYDROLOGIC ENGINEER and transportation services. Ed verbalized understanding and agreeable to discharge plan. Spoke with Emily. Above information provided. Emily verbalized understanding. Chair van will be booked for patient for 3pm. [facility] with chart. Patient, Emily, Ed, Arlene CHAVEZ and Lucien VELAZQUEZ aware. Continue to monitor for d/c needs.
== END 2020-07-25 15:30 | disposition home or self-care (01) ==
PROVIDERS: Emergency Provider Student in an Organized Health Care Education/Training Program; PCP Internal Medicine
DX: R41.0 Disorientation, unspecified (principal); F17.210 Nicotine dependence, cigarettes, uncomplicated; Z20.822 Contact with and (suspected) exposure to COVID-19; Z71.6 Tobacco abuse counseling; Z79.899 Other long term (current) drug therapy
CPT/HCPCS: 36415; 70450; 71045; 80053; 81003; 83735; 85025; 85610; 87635; 93005; 96360; 96361; 97161; 99285

== ENCOUNTER → 2020-09-17 10:34 | Outpatient (BNVA) | payer OTHER, SELFPAY | PROVIDERS: PCP Internal Medicine; Visit Provider Internal Medicine | DX: M81.0 Age-related osteoporosis without current pathological fracture (principal); E55.9 Vitamin D deficiency, unspecified | CPT/HCPCS: Q3014 ==

== ENCOUNTER 2020-10-07 17:05 | Emergency (ER) | payer OTHER, SELFPAY ==
--- NOTE | ~2020-10-07 | CT_ITS ---
EXAMINATION: CT ANGIOGRAM CHEST, ABDOMEN AND PELVIS CLINICAL INFORMATION: Question dissection. COMPARISON: Most recent chest radiograph done earlier the same day. Renal ultrasound dated 12/09/2019. TECHNIQUE: Noncontrast axial images obtained through the chest. Multiple axial images were obtained through the chest abdomen and pelvis following the administration of 100 mL of Optiray 320 intravenous contrast. Coronal and sagittal reformatted images performed at CT scanner. No 3-D imaging. This CT examination was performed using dose optimization techniques as appropriate, variously including the following: *Automated exposure control *Adjustment of mA and/or kV according to patient size (this includes techniques or standardized protocols for targeted exams where dose is matched to indication/reason for exam; i.e. extremities or head) *Use of iterative reconstruction technique DLP: 797 mGy-cm. FINDINGS: VASCULAR: No thoracic aortic dissection. There is no aneurysm. There is complete opacification to the proximal left subclavian artery with reconstitution of contrast distal to the opacification, likely related to collateral filling from the vertebral artery. The filling defect measures 0.9 cm in length. Severe atherosclerotic disease within the abdominal aorta. Associated ulcerations with the plaques noted within the abdominal aorta without significant dissection. No extraluminal extravasation of contrast. Otherwise, there is normal enhancement of the major branch vessels at the thoracic aortic arch as well as in the abdomen and pelvis. Evaluation of pulmonary artery is severely limited due to contrast bolus timing. CT CHEST: MEDIASTINUM: No cardiomegaly. No pericardial effusion. No mediastinal mass. No superior mediastinal or hilar lymphadenopathy. LUNGS: Mild emphysematous changes. Bilateral dependent atelectasis. No large pulmonary mass or confluent airspace consolidation. Evaluation for small pulmonary nodules limited due to respiratory motion. The central airways are patent. FLUID: There is no pericardial effusion. There is no pleural effusion. AXILLA: No significant lymphadenopathy. CT SCAN ABDOMEN PELVIS: LIVER, GALLBLADDER, AND BILIARY TREE: The liver is normal in size, shape, and attenuation. No focal hepatic lesion or biliary ductal dilatation is present. Cholelithiasis. No associated inflammatory change. PANCREAS: Unremarkable. SPLEEN: Unremarkable. ADRENAL GLANDS: Unremarkable. KIDNEYS AND URETERS: The kidneys are normal in size, shape, and attenuation. No hydronephrosis, hydroureter, or calculi seen. No perinephric stranding. BLADDER: Unremarkable. GASTROINTESTINAL TRACT: Prominent rectosigmoid diverticulosis without evidence of acute diverticulitis. No bowel wall thickening or associated inflammatory change. No small or large bowel obstruction. Unremarkable appendix. PERITONEAL CAVITY: No intra-abdominal free air or free fluid. No intra-abdominal mass or organized fluid collection/abscess formation. ABDOMINAL WALL: Small, fat-containing periumbilical hernia. LYMPH NODES: Normal. PELVIC VISCERA: The prostate and seminal vesicles are unremarkable. OSSEOUS STRUCTURES: No concerning lytic or blastic osseous lesion. CT/CT angio abdomen pelvis IMPRESSION: 1. Complete opacification of the proximal left subclavian artery measuring 0.9 cm in length. There is distal reconstitution, likely related to collateral filling from the left vertebral artery. 2. Severe atherosclerotic disease within the abdominal aorta with associated ulcerations and prominent plaques. No abdominal aortic aneurysm or dissection. No extraluminal extravasation of contrast. 3. Mild emphysematous changes with bilateral dependent atelectasis. No large pulmonary mass or confluent airspace consolidation. 4. Prominent rectosigmoid diverticulosis without evidence of acute diverticulitis. 5. No intra-abdominal mass, lymphadenopathy, or ascites.
--- NOTE | ~2020-10-07 | CT_ITS ---
EXAMINATION: CT HEAD WITHOUT CONTRAST CLINICAL INFORMATION: Weakness. COMPARISON: Most recent CT head dated 07/25/2020. TECHNIQUE: Contiguous axial imaging was performed from the skull base to vertex without intravenous administration of contrast. This CT examination was performed using dose optimization techniques as appropriate, variously including the following: *Automated exposure control. *Adjustment of mA and/or kV according to patient size (this includes techniques or standardized protocols for targeted exams where dose is matched to indication/reason for exam; i.e. extremities or head). *Use of iterative reconstruction technique. DLP: 787 mGy-cm FINDINGS: There is no evidence of acute intracranial hemorrhage or territorial infarction. No abnormal mass effect or midline shift is seen. Redemonstration of encephalomalacia and loss of ray-white differentiation within the right temporoparietal lobe as well as the high right frontal lobe, unchanged. No new loss of ary-white differentiation. No extra-axial fluid collections are identified. The ventricles and sulci are unchanged. Bilateral basal ganglionic calcifications are redemonstrated. The osseous structures and soft tissues are normal. The left maxillary sinus is again noted to be opacified. Otherwise, the visualized paranasal sinuses and mastoid air cells are clear. CT/CT head/brain wo con IMPRESSION: 1. No acute intracranial hemorrhage or mass effect. 2. Remote high right frontal and right temporoparietal infarcts, unchanged.
--- NOTE | ~2020-10-07 | XR_ITS ---
EXAMINATION: XR CHEST CLINICAL INFORMATION: Weakness. COMPARISON: Most recent chest radiograph dated 07/25/2020. TECHNIQUE: Frontal view of the chest was obtained. FINDINGS: The lungs are clear. The cardiomediastinal silhouette is normal in size. There is no pleural effusion or pneumothorax. No acute osseous abnormality. XR/XR chest 1V IMPRESSION: No acute cardiopulmonary findings.
--- NOTE | 2020-10-07 17:16 | ED_ITS ---
HPI - Weakness General Chief complaint: Weakness Stated complaint: weakness Source: patient and EMS Mode of arrival: EMS History of Present Illness HPI Narrative: 65-year-old male with past medical history of dementia, psychosis, hyperlipidemia, hypertension, chronic right-sided weakness, osteoporosis, hard of hearing presents via EMS for several days of right-sided weakness. Patient is a poor historian regarding past medical history. He denies chest pain and pressure, palpitations, shortness of breath, fevers, chills, abdominal pain, abdominal distention, dysuria, hematuria, and edema. MD Complaint: generalized weakness Onset (ago): day(s) Duration: constant Location: generalized Migration: none Severity: mild Relieving factors: none Exacerbating factors: none Associated symptoms: denies other symptoms Related Data Home Medications Medication Instructions Recorded Confirmed aspirin 81 mg tablet,delayed 81 mg PO DAILY 05/24/20 09/17/20 release pyridoxine (vitamin B6) 100 mg PO DAILY 07/25/20 09/17/20 Previous Rx's Medication Instructions Recorded cholecalciferol (vitamin D3) 125 125 mcg PO DAILY #90 cap 05/29/20 mcg (5,000 unit) capsule folic acid 1 mg tablet 1 mg PO DAILY #90 tab 06/07/20 clopidogrel 75 mg tablet 75 mg PO DAILY #90 tab 06/27/20 atorvastatin 80 mg tablet 80 mg PO DAILY #90 tab 08/20/20 mirtazapine 15 mg tablet 15 mg PO BEDTIME #30 tab 08/23/20 diclofenac sodium 1 % topical gel 2 g TOPICAL QID #100 g 09/20/20 Allergies Allergy/AdvReac Type Severity Reaction Status Date / Time No Known Allergies Allergy Verified 09/17/20 12:54 [No Known Allergies*] Review of Systems Review of Systems: Dementia, poor historian Yes Unobtainable due to mental status PMFSH Past Medical History Attestation statement: The following information was validated with the patient. Source: old records reviewed Medical History Compression fracture of T8 vertebra CVA (cerebral vascular accident) Dementia Dizziness Hyperlipidemia Impaired hearing Insomnia Legally blind Lower back pain Osteoporosis Psychosis Vitamin D deficiency Surgical History No pertinent past surgical history Family History Family History Father Cancer Mother No problems noted. Paternal Grandmother Diabetes mellitus Social History Social History Alcohol intake: unknown Cigarette Packs Per Day: 1 Advance Directives: Yes Advance Directives on File: Yes Advance Directives Date on File: 07/25/20 Physical Exam Vital Signs: Vital Signs: Last Vital Signs Temp 99.1 F 10/07/20 19:01 Pulse 59 10/07/20 19:01 Resp 18 10/07/20 19:01 BP 195/102 H 10/07/20 19:01 Pulse Ox 97 10/07/20 19:01 Body Mass Index 28.2 Appearance: Alert. Oriented X self and situation. No acute distress. Eyes: No pain on extraocular movements, no scleral icterus ENT: Pharynx normal. Neck: Normal inspection. Neck supple. CVS: Normal heart rate and rhythm. Pulses normal. Respiratory: No respiratory distress. Breath sounds normal. Abdomen: Soft and nontender. Skin: Skin warm and dry. Normal skin color. Normal skin turgor. Extremities: Right-sided weakness per baseline Neuro: No motor deficit. No sensory deficit. Course Course Course Narrative: 65-year-old male presents with several days of worsening right-sided weakness. NIH stroke scale unable to be completed as patient is legally blind, hard of hearing, has right-sided weakness per baseline. He does have a known extensive gliosis and encephalomalacia in the right temporoparietal occipital regions, consistent with sequelae of a right middle cerebral artery territory chronic infarct. Will order CBC, Chem 7, PT INR. Patient is on clopidogrel and aspirin. H&H is 13.4/39.9 consistent with prior lab values. Chest x-ray is normal. 8:36 p.m. patient still refusing straight catheterization. 8:55 p.m. RN [facility] was able to obtain urine sample. Urinalysis is negative. Plan of care is to discharge patient home. MDM - Weakness Differential Diagnosis Differential diagnosis: Likely UTI, hypoglycemia, sepsis and dehydration Medical Records Attestation: I reviewed the patient's medical records. Lab Data Attestation: I reviewed the patient's lab results. Result diagrams: 10/07/20 18:00 10/07/20 18:00 Labs: Lab Results 10/07/20 10/07/20 10/07/20 Range/Units 18:00 18:00 18:00 WBC 7.2 (4.8-10.8) X10*3/uL RBC 4.28 L (4.60-5.80) X10*6/uL Hgb 13.4 L (14.0-18.0) g/dl Hct 39.9 L (42-52) % MCV 93.2 (80-98) fL MCH 31.3 (27.0-33.0) pg MCHC 33.6 (31.0-36.0) g/dl RDW 13.7 (11.0-16.0) % Plt Count 202 (160-400) X10*3/uL MPV 9.6 (9.4-12.4) fL Immature Gran % (Auto) 0.1 (0.0-0.4) % Neut % (Auto) 63.2 (45-73) % Lymph % (Auto) 26.4 (20-40) % [place] % (Auto) 7.9 (2-11) % Eos % (Auto) 1.7 (0-4) % Baso % (Auto) 0.7 (0-2) % Lymph # (Auto) 1.9 (1.2-4.9) X10*3/uL [place] # (Auto) 0.6 (0.1-1.2) X10*3/uL Eos # (Auto) 0.1 (0.0-0.4) X10*3/uL Baso # (Auto) 0.1 (0.0-0.2) X10*3/uL Abs Immat Gran (auto) 0.01 (0.00-0.03) X10*3/uL Absolute Neuts (auto) 4.6 (2.0-8.3) X10*3/uL Absolute Nucleated RBC 0.000 (0.0-0.012) X10*3/uL Nucleated RBC % (auto) 0.0 (0.0-0.2) /100WBC PT 12.4 (10.8-13.0) SEC INR 1.0 (0.9-1.1) APTT 83.5 H* (24.1-38.0) SEC Sodium 141 (135-145) mmol/L Potassium 3.9 (3.3-5.1) mmol/L Chloride 110 H (96-108) mmol/L Carbon Dioxide 22 (22-29) mmol/L Anion Gap 13 (12-20) BUN 15 (9-16) mg/dL Creatinine 1.00 (0.5-1.4) mg/dL Estim Creat Clear Calc 69.8 Estimated GFR > 60 Random Glucose 91 (60-115) mg/dL Calcium 8.6 (8.4-10.2) mg/dL Total Bilirubin 0.6 (0.0-1.0) mg/dL Direct Bilirubin 0.2 (0.0-0.5) mg/dL AST 12 D (5-37) U/L ALT 12 (0-40) U/L Alkaline Phosphatase 75 (39-117) U/L Troponin I High Sens (<3.5-35.0) ng/L Total Protein 6.4 L (6.5-8.0) g/dL Albumin 4.0 (3.5-5.0) g/dL Lipase 32 (8-78) U/L Urine Color Urine Appearance Urine pH (5.0-8.0) Ur Specific [place] (1.005-1.025) Urine Protein (NEG-TRACE) MG/DL Urine Glucose (UA) (NEG) MG/DL Urine Ketones (NEG) MG/DL Urine Blood (NEG) Urine Nitrite (NEG) Ur Leukocyte Esterase (NEG) 10/07/20 10/07/20 Range/Units 18:00 20:46 WBC (4.8-10.8) X10*3/uL RBC (4.60-5.80) X10*6/uL Hgb (14.0-18.0) g/dl Hct (42-52) % MCV (80-98) fL MCH (27.0-33.0) pg MCHC (31.0-36.0) g/dl RDW (11.0-16.0) % Plt Count (160-400) X10*3/uL MPV (9.4-12.4) fL Immature Gran % (Auto) (0.0-0.4) % Neut % (Auto) (45-73) % Lymph % (Auto) (20-40) % [place] % (Auto) (2-11) % Eos % (Auto) (0-4) % Baso % (Auto) (0-2) % Lymph # (Auto) (1.2-4.9) X10*3/uL [place] # (Auto) (0.1-1.2) X10*3/uL Eos # (Auto) (0.0-0.4) X10*3/uL Baso # (Auto) (0.0-0.2) X10*3/uL Abs Immat Gran (auto) (0.00-0.03) X10*3/uL Absolute Neuts (auto) (2.0-8.3) X10*3/uL Absolute Nucleated RBC (0.0-0.012) X10*3/uL Nucleated RBC % (auto) (0.0-0.2) /100WBC PT (10.8-13.0) SEC INR (0.9-1.1) APTT (24.1-38.0) SEC Sodium (135-145) mmol/L Potassium (3.3-5.1) mmol/L Chloride (96-108) mmol/L Carbon Dioxide (22-29) mmol/L Anion Gap (12-20) BUN (9-16) mg/dL Creatinine (0.5-1.4) mg/dL Estim Creat Clear Calc Estimated GFR Random Glucose (60-115) mg/dL Calcium (8.4-10.2) mg/dL Total Bilirubin (0.0-1.0) mg/dL Direct Bilirubin (0.0-0.5) mg/dL AST (5-37) U/L ALT (0-40) U/L Alkaline Phosphatase (39-117) U/L Troponin I High Sens 24.2 (<3.5-35.0) ng/L Total Protein (6.5-8.0) g/dL Albumin (3.5-5.0) g/dL Lipase (8-78) U/L Urine Color YELLOW Urine Appearance CLEAR Urine pH 6.0 (5.0-8.0) Ur Specific [place] 1.020 (1.005-1.025) Urine Protein NEG (NEG-TRACE) MG/DL Urine Glucose (UA) NEG (NEG) MG/DL Urine Ketones NEG (NEG) MG/DL Urine Blood NEG (NEG) Urine Nitrite NEG (NEG) Ur Leukocyte Esterase NEG (NEG) Imaging Data Chest x-ray: Attestation: I personally reviewed and interpreted this imaging study as follows: Radiologist's impression: EXAMINATION: XR CHEST CLINICAL INFORMATION: Weakness. COMPARISON: Most recent chest radiograph dated 07/25/2020. TECHNIQUE: Frontal view of the chest was obtained. FINDINGS: The lungs are clear. The cardiomediastinal silhouette is normal in size. There is no pleural effusion or pneumothorax. No acute osseous abnormality. XR/XR chest 1V IMPRESSION: No acute cardiopulmonary findings. ECG Data Attestation: I personally reviewed and interpreted this ECG as follows: ECG interpretation date: 10/07/20 ECG interpretation time: 17:48 Interpretation: Vent. rate 62 BPM MI interval 150 ms QRS duration 96 ms QT/QTc 438/444 ms P-R-T axes 0 1 118 Normal sinus rhythm Minimal voltage criteria for LVH, may be normal variant T wave abnormality, consider lateral ischemia Abnormal ECG When compared with ECG of 25-JUL-2020 01:55, Premature atrial complexes are no longer Present Discharge Plan Discharge Clinical Impression: Weakness Patient Disposition: Home, Self-Care Instructions: Weakness (ED) Additional Instructions: You were evaluated for chronic weakness. Your lab values are normal, your urinalysis is negative. Your EKG was normal, your cardiac enzymes were negative . Please follow-up with primary care physician. Thank you for choosing this emergency department for evaluation. Please follow-up with primary care physician as needed. Return to the emergency de partment for any new, concerning, or worsening symptoms. Prescriptions: No [facility] cholecalciferol (vitamin D3) 125 mcg (5,000 unit) capsule 125 mcg PO DAILY Qty: 90 RF: 3 folic acid 1 mg tablet 1 mg PO DAILY Qty: 90 RF: 3 clopidogrel 75 mg tablet 75 mg PO DAILY Qty: 90 RF: 3 atorvastatin 80 mg tablet 80 mg PO DAILY Qty: 90 RF: 0 diclofenac sodium [Voltaren] 1 % gel 2 g topical QID Qty: 100 RF: 5 pyridoxine (vitamin B6) 100 mg tablet 100 mg PO DAILY RF: 0 aspirin [Adult Aspirin Regimen] 81 mg tablet,delayed release (DR/EC) 81 mg PO DAILY RF: 0 mirtazapine 15 mg tablet 15 mg PO BEDTIME Qty: 30 RF: 3
[2020-10-07 17:18] VITALS: BP 143/94; PULSE 64; RESP 18; TEMP 37.2; O2SAT 97; BMI 28.2
--- NOTE | 2020-10-07 17:23 | ECG_ITS ---
Test Reason : WEAKNESS Blood Pressure : / mmHG Vent. Rate : 062 BPM Atrial Rate : 062 BPM P-R Int : 150 ms QRS Dur : 096 ms QT Int : 438 ms P-R-T Axes : 000 001 118 degrees QTc Int : 444 ms Normal sinus rhythm Minimal voltage criteria for LVH, may be normal variant T wave abnormality, consider lateral ischemia Abnormal ECG When compared with ECG of 25-JUL-2020 01:55, Premature atrial complexes are no longer Present Referred By: Ghislaine Ramsey Electronically Signed By:ERICH MELVIN
[2020-10-07 18:06] LABS: MANUAL DIFF FLAG NO
[2020-10-07 18:07] LABS: Basophils Absolute Auto 0.1 X10*3/uL (0.0-0.2); Basophils Percent Auto 0.7 % (0-2); Eosinophils Absolute Auto 0.1 X10*3/uL (0.0-0.4); Eosinophils Percent Auto 1.7 % (0-4); Hematocrit 39.9 % (42-52); Hemoglobin 13.4 g/dl (14.0-18.0); Imm Gran Abs Auto 0.01 X10*3/uL (0.00-0.03); Imm Gran Pct Auto 0.1 % (0.0-0.4); Lymphocytes Absolute Auto 1.9 X10*3/uL (1.2-4.9); Lymphocytes Percent Auto 26.4 % (20-40); Mean Corpuscular HGB Conc 33.6 g/dl (31.0-36.0); Mean Corpuscular Hemoglobin 31.3 pg (27.0-33.0); Mean Corpuscular Volume 93.2 fL (80-98); Mean Platelet Volume 9.6 fL (9.4-12.4); Monocytes Absolute Auto 0.6 X10*3/uL (0.1-1.2); Monocytes Percent Auto 7.9 % (2-11); Neutrophils Absolute Auto 4.6 X10*3/uL (2.0-8.3); Neutrophils Percent Auto 63.2 % (45-73); Platelet Count 202 X10*3/uL (160-400); Red Blood Count 4.28 X10*6/uL (4.60-5.80); Red Cell Distribution Width 13.7 % (11.0-16.0); White Blood Count 7.2 X10*3/uL (4.8-10.8)
[2020-10-07 18:16] LABS: Prothrombin Time 12.4 SEC (10.8-13.0)
[2020-10-07 18:34] LABS: Alanine Aminotransferase 12 U/L (0-40); Alkaline Phosphatase 75 U/L (39-117); Anion Gap 13 (12-20); Aspartate Amino Transferase 12 U/L (5-37); Bilirubin Direct 0.2 mg/dL (0.0-0.5); Bilirubin Total 0.6 mg/dL (0.0-1.0); Blood Urea Nitrogen 15 mg/dL (9-16); Calcium 8.6 mg/dL (8.4-10.2); Carbon Dioxide 22 mmol/L (22-29); Chloride 110 mmol/L (96-108); Creatinine Clr Calc Pharmacy 69.8; Estimated Glomerular Filt Rate > 60; Glucose Random 91 mg/dL (60-115); Lipase 32 U/L (8-78); Partial Thromboplastin Time 83.5 SEC (24.1-38.0); Potassium 3.9 mmol/L (3.3-5.1); Sodium 141 mmol/L (135-145); Total Protein 6.4 g/dL (6.5-8.0)
[2020-10-07 18:38] LABS: Troponin-I High Sensitivity 24.2 ng/L (<3.5-35.0)
--- NOTE | 2020-10-07 18:56 | PC.NURSE ---
PT UPRIGHT IN BED, RR EVEN UNLABORED, SKIN WPD, AOX3. PT OFFERS NO NEW COMPLAINTS, AWARE OF NEED FOR URINE SAMPLE FOR DISPO, STS UNABLE TO URINATE ATT, REFUSING STRAIGHT CATH FOR SAMPLE.
[2020-10-07 19:01] VITALS: BP 195/102; PULSE 59; RESP 18; TEMP 37.3; O2SAT 97
[2020-10-07 20:54] LABS: Glucose Urine UA NEG (NEG); Leukocyte Esterase Urine NEG (NEG); Nitrite Urine NEG (NEG); Urine Blood NEG (NEG); Urine Ketones NEG (NEG); Urine Protein NEG (NEG-TRACE)
[2020-10-07 20:56] LABS: Appearance Urine CLEAR; Color Urine YELLOW
--- NOTE | 2020-10-07 22:02 | PC.NURSE ---
PT WAS TO BE D/C'D, PT'S SPS ARRIVED TO PICK PT UP AND REPORTED SHE DID NOT FEEL SAFE HAVING PT RETURN HOME IN HIS CURRENT CONDITION, PT'S SPS REPORTS THAT NORMALLY HE AMBULATES INDEPENDENTLY IN HOUSE W/OUT ASSIST, SPEAKS CLEARLY, SHE REPORTED THAT PT'S SPEECH CURRENTLY UNUSUAL FOR PT. PT UNABLE TO SIT SELF UPRIGHT IN WHEELCHAIR, LEANING TO L SIDE. PT UNABLE TO STAND ON OWN, REQUIRED 1 PERSON ASSIST TO STAND AND PIVOT TO/FROM WHEELCHAIR/BED. ONCE BACK IN BED PT AGAIN LEANING TO L SIDE. PT'S SPS STATED SHE WOULD PREFER HIM SENT TO STR OR WHATEVER WAS DEEMED APPROPRIATE. PROVIDER UPDATED ON CHANGE IN PT STATUS.
[2020-10-07 22:36] VITALS: BP 127/97; PULSE 60; RESP 18; TEMP 36.7; O2SAT 96
[2020-10-07 22:39] VITALS: BP 194/106
[2020-10-07] MEDS: 0.9 % Sodium Chloride 1,000 ML 999 ML IVCONT (22:55)
[2020-10-07] MEDS: iohexoL 350 MG/ML 100 ML INFUS..BTL 70 ML IV (23:25)
[2020-10-08 02:00] VITALS: BP 154/82; PULSE 60; RESP 18; TEMP 36.7; O2SAT 96
[2020-10-08 05:58] VITALS: BP 147/96; PULSE 60; RESP 18; O2SAT 96
[2020-10-08 07:09] VITALS: BP 125/105; PULSE 60; RESP 20; TEMP 37.1; O2SAT 95
--- NOTE | 2020-10-08 07:19 | PC.NURSE ---
REPORT TAKEN FROM ROMERO RN. PATIENT RESTING ON STRETCHER, REPOSITIONED. ATTEMPTED TO FEED PATIENT BREAKFAST BUT PATIENT REFUSED. PATIENT POOR HISTORIAN, NOT OFFERING ANY INFORMATION TO RN AT THIS TIME. PER ROMERO, PLAN FOR PHYSICAL THERAPY AND CASE MANAGEMENT TODAY.
--- NOTE | 2020-10-08 10:35 | PC.NURSE ---
patients linens changed, condom catheter applied to patient.
--- NOTE | 2020-10-08 15:05 | PC.NURSE ---
physical therapy at bedside. unable to do much eval with patient, does not help with transferring/moving around. physical therapy said that they will try again for more evaluation tomorrow.
[2020-10-08 15:08] VITALS: BP 114/77; PULSE 66; RESP 20; TEMP 37; O2SAT 98
--- NOTE | 2020-10-08 16:02 | MHC.CM.ED ---
Received case management consult overnight. Patient came to ER due to weakness. Patient was going to be discharged home last night. However, patient's , Emily did not feel she can take care of him. Physical therapy eval completed. Waiting for eval to be written up. Left message for patient's brother, HCP Ed via telephone at [phone], requesting return telephone call so a discharge plan can be arranged. Continue to monitor for d/c needs.
--- NOTE | 2020-10-08 16:10 | MHC.CM.ED ---
Received return telephone call from patient's brother/HCP, Ed. List of facilities contracted with patient's insurance sent to Ed via email from [facility]. Ed will review it and make 2 choices. Continue to monitor for d/c needs.
[2020-10-08] MEDS: Atorvastatin Calcium 80 MG TABLET PO (16:53)
[2020-10-08] MEDS: Folic Acid 1 MG TABLET PO (16:53)
[2020-10-08] MEDS: Clopidogrel Bisulfate 75 MG TABLET PO (16:53)
[2020-10-08] MEDS: Aspirin Enteric Coated 81 MG TABLET.DR PO (16:53)
--- NOTE | 2020-10-08 17:34 | PC.NURSE ---
FAMILY IN TO VISIT WITH PATIENT. RN IN TO SPEAK WITH MEGAN REGARDING PLAN OF CARE. FAMILY INFORMED PHYSICAL THERAPY WILL RETURN TOMORROW TO FINISH EVAL. FAMILY REPORTED THAT THEY HAD BEEN IN TOUCH WITH CASE MANAGEMENT AND WERE SENT A LINK FOR PLACEMENT OPTIONS. FAMILY INFORMED RN THAT PATIENT IS NOT CURRENTLY AT BASELINE WITH HIS WORDS/MENTALLY. INFORMED KATHY MURPHY AND ANDREIA WHO HAD PATIENT AND DID FULL WORK UP YESTERDAY. ANDREIA IN AND SPOKE WITH FAMILY AND EXPLAINED NO NEW FINDINGS ON CT AND LAB WORK YESTERDAY. FAMILY AWRE PLACEMENT FOR REHAB WILL MOST LIKELY HAPPEN TOMORROW. FAMILY STAYING AT BEDSIDE AND WILL ATTEMPT TO FEED PT DINNER, PATIENT HAS NOT EAT MUCH TODAY.
[2020-10-08 17:42] VITALS: BP 138/117; PULSE 66; RESP 16; O2SAT 96
--- NOTE | 2020-10-08 19:45 | PC.NURSE ---
pt sitting comfortably in bed in semi fowlers watching tv. respirations even and unlabored no signs of distress noted. eye contact and verbal response appropriate for setting and patient. this nurse asked pt if he was hungry and wanted help eating but pt stated he was not hungry at this time. call foy in reach.
--- NOTE | 2020-10-08 21:42 | PC.NURSE ---
Milly, patient's sister and HCP, calling requesting that patient be transported [place] [facility] [place]
[2020-10-08 22:00] VITALS: PULSE 71; RESP 24; O2SAT 96
[2020-10-08] MEDS: Mirtazapine 15 MG TABLET PO (22:18)
--- NOTE | 2020-10-08 22:19 | PC.NURSE ---
Medicated with PM medication per MAR, swallowing pill with water but requires prompting throughout administration.
--- NOTE | 2020-10-08 22:53 | PC.NURSE ---
pts sister Milly (Health Care Proxy) called for an update and to provide suggestions for Amari in terms of him getting enough food and PO fluids. this nurse informed her that we are frequently checking in on him and asking if he wants food/assessing his hydration status (mucous membranes, urine output). this nurse informed her we will continue to encourage PO fluids and food intake. call law in reach.
[2020-10-09 06:28] VITALS: PULSE 56; RESP 16; O2SAT 98
--- NOTE | 2020-10-09 08:23 | MHC.CM.ED ---
Patient remains in ER. [facility] first choice for short term rehab. Referral sent via [facility]. Physical therapy eval is pending. Continue to monitor for d/c needs.
[2020-10-09] MEDS: Cholecalciferol (Vitamin D3) 25 MCG TABLET 125 MCG PO (09:24)
[2020-10-09] MEDS: Aspirin Enteric Coated 81 MG TABLET.DR PO (09:25)
[2020-10-09] MEDS: Folic Acid 1 MG TABLET PO (09:25)
[2020-10-09] MEDS: Clopidogrel Bisulfate 75 MG TABLET PO (09:25)
[2020-10-09] MEDS: Atorvastatin Calcium 80 MG TABLET PO (09:25)
[2020-10-09 09:29] VITALS: PULSE 56; O2SAT 98
--- NOTE | 2020-10-09 09:47 | PC.NURSE ---
pt had small amount of water with pills, has episode of coughing and difficulty clearing secretions after sip of water. Stopped PO fluid, MD aware. Pt awaits swallow eval from speech therapy. Family at bedside.
--- NOTE | 2020-10-09 10:52 | MHC.CM.ED ---
[facility] to [facility] a bed and is in the process of obtaining insurance auth. Attempted to reach out to patient's brother/HCP Ed. Left a voicemail at [phone] requesting return telephone call. Continue to monitor for d/c needs.
--- NOTE | 2020-10-09 10:58 | MHC.CM.ED ---
Received return telephone call from patient's brother/HCP, Ed. Patient never had a Covid vaccine. Ed verbalized understanding that [facility] is able to offer a bed and is in the process of obtaining insurance auth. Continue to monitor for d/c needs.
--- NOTE | 2020-10-09 13:50 | PC.NURSE ---
pt refusing VS. HE has disrobed and removed his [place] catheter and urinated in bed. Pt was cleaned and repositioned, he is refusing meal. pt repositioned and resting quietly. Will reapproach at later time
[2020-10-09 14:25] LABS: COVID-19 Test Negative (Negative); IDNOW Serial# 9DD0AD1C
--- NOTE | 2020-10-09 14:54 | MHC.CM.ED ---
Insurance auth has been [facility] Patient can leave at 330pm. [facility] booked. Med nec on chart. Patient, brother/HCP Ed, Emily, Arlene CHAVEZ and Mariluz VELAZQUEZ aware. Continue to monitor for d/c needs.
== END 2020-10-09 16:08 | disposition skilled nursing facility (03) ==
PROVIDERS: Nurse Practitioner Family; Physician Assistant; Emergency Provider Internal Medicine; PCP Internal Medicine
DX: R53.1 Weakness (principal); F03.90 Unspecified dementia, unspecified severity, without behavioral disturbance, psychotic disturbance, mood disturbance, and anxiety; E78.5 Hyperlipidemia, unspecified; I10 Essential (primary) hypertension; F17.210 Nicotine dependence, cigarettes, uncomplicated; Z79.82 Long term (current) use of aspirin; Z79.02 Long term (current) use of antithrombotics/antiplatelets; Z79.899 Other long term (current) drug therapy
CPT/HCPCS: 36415; 70450; 71045; 71275; 74174; 80048; 80076; 81003; 83690; 84484; 85025; 85610; 85730; 87635; 93005; 96360; 97163; 99285; Q9967